=== PATIENT | female | born 1955 | race Caucasian/White ===

== ENCOUNTER 2018-04-12 10:29 | Outpatient (CLI) | payer MEDICAID, SELFPAY ==
[2018-04-12 12:42] LABS: HCT 38.8 % (36.0-46.0); HGB 12.8 g/dL (12.0-15.5); Mean Corpuscular Hemoglobin 29.9 pg (27.0-33.0); Mean Corpuscular Volume 90.7 fL (80-95); Mean Platelet Volume 10.4 fL (8.0-11.0); Platelet Count 228 x1000/uL (130-400); RBC 4.28 m/cumm (4.00-5.20); RBC Distribution Width 13.5 % (11.7-14.6); White Blood Cell Count 6.88 k/cumm (4.4-10.8)
[2018-04-12 13:02] LABS: ALT 21 U/L (12-78); AST 18 U/L (15-37); Albumin 3.6 g/dL (3.4-5.0); Alkaline Phosphatase 170 U/L (46-116); Anion Gap 8.6 mmol/L (3-11); BUN 14 mg/dL (7-18); Bilirubin, Total 0.4 mg/dL (0.2-1.0); CO2 26.4 mmol/L (21.0-32.0); CREATININE 0.81 mg/dL (0.55-1.02); Calcium 9.5 mg/dL (8.5-10.1); Chloride 105 mmol/L (98-107); Glucose 92 mg/dL (70-100); Potassium 4.1 mmol/L (3.5-5.1); Sodium 140 mmol/L (136-145); Total Protein 8.2 g/dL (6.4-8.2)
== END 2018-04-12 10:49 ==
PROVIDERS: PCP Registered Nurse; Visit Provider Obstetrics & Gynecology Gynecology
DX: N95.0 Postmenopausal bleeding (principal); Z01.818 Encounter for other preprocedural examination
CPT/HCPCS: 36415; 80053; 85027; 86850; 86900; 86901

== ENCOUNTER 2018-04-13 14:21 | Observation (INO) | payer MEDICAID, SELFPAY ==
--- NOTE | 2018-04-12 12:07 | DSU.FORM ---
04/12/18 Call made to Care Management Oralia Martinez to inform them of the possible need for post op services for Norma. Per Oralia Scrap Collector they will see Norma when she arrives on Med/surg after the procedure.
[2018-04-13] VITALS (18 sets, daily range): BP systolic 66–154; BP diastolic 23–78; PULSE 70–93; RESP 9–20; TEMP 35.6–36.7; O2SAT 90–96
[2018-04-13] MEDS: Lactated Ringers 1,000 ML 125 ML IV ×4 (07:27→16:50)
[2018-04-13] MEDS: Bupivacaine 0.25% Pres-Free 10 ML VIAL 20 ML (08:36)
--- NOTE | 2018-04-13 11:55 | UTER_PTH ---
PATIENT: Norma Yoon LOC: ICU U#:[id number] AGE/SX: 62/F ROOM: ICU.219 RE04/13/[address]: Lady Degroot : 1955 BED: A DIS: 04/14/2018 SPEC #: [id number] RECD: 04/13/18 13:13 STATUS: RUPA REQ #: [id number] KELLEY: 04/13/18 11:[address]: Lady Degroot DEPT: Surgical Specimen RECD BY: Shikha Otoole ENTERED: 04/13/18 13:17 SP TYPE: UTER OTHR DR: Ludy Ford Tissues: 1 - BLADDER BIOPSY 2 - OVARY NOT TUMOR W OR W/O TUBES 3 - UTERUS W OR W/O OVARIES(NOT TUMOR/PROLAPSE) Procedures: GROSS AND MICRO LEVEL 5 Comments: [id number] (PLEASE SILVA!)
[2018-04-13 14:40] LABS: HCT 32.9 % (36.0-46.0); HGB 10.8 g/dL (12.0-15.5)
[2018-04-13] MEDS: Pantoprazole 40 MG VIAL IVP (16:50)
[2018-04-13] MEDS: Normal Saline Flush 10 ML SYR IVP (16:50)
[2018-04-13] MEDS: LORazepam 0.5 MG TAB PO ×2 (18:53→23:29)
[2018-04-13] MEDS: Ketorolac 15 MG/ML VIAL IVP (22:02)
[2018-04-13] MEDS: Gemfibrozil 600 MG TAB PO (22:45)
[2018-04-13] MEDS: ARIPiprazole 5 MG TAB PO (22:46)
[2018-04-13] MEDS: oxyCODONE 5 MG TAB PO (23:29)
[2018-04-14] VITALS (10 sets, daily range): BP systolic 86–109; BP diastolic 44–80; PULSE 60–138; RESP 16–30; TEMP 36.3–36.5; O2SAT 90–99
[2018-04-14] MEDS: Lactated Ringers 1,000 ML 125 ML IV (00:12)
[2018-04-14] MEDS: Ketorolac 15 MG/ML VIAL IVP (04:25)
[2018-04-14] MEDS: Budesonide/Formoterol 160/4.5 6 GM 60 PUFF INH IH (07:11)
[2018-04-14 07:50] LABS: HCT 27.7 % (36.0-46.0); Mean Corp. HGB Concentration 32.5 g/dL (32.0-36.0); Mean Corpuscular Hemoglobin 30.3 pg (27.0-33.0); Mean Corpuscular Volume 93.3 fL (80-95); Platelet Count 206 x1000/uL (130-400); RBC 2.97 m/cumm (4.00-5.20); RBC Distribution Width 13.5 % (11.7-14.6)
[2018-04-14] MEDS: Pantoprazole 40 MG TABCR PO (08:05)
[2018-04-14] MEDS: Gemfibrozil 600 MG TAB PO (08:05)
[2018-04-14] MEDS: Escitalopram 20 MG TAB PO (08:05)
[2018-04-14] MEDS: Ibuprofen 800 MG TAB PO (08:05)
[2018-04-14] MEDS: Escitalopram 10 MG TAB PO (08:05)
[2018-04-14 08:28] LABS: ALT 33 U/L (12-78); AST 73 U/L (15-37); Albumin 2.7 g/dL (3.4-5.0); Alkaline Phosphatase 127 U/L (46-116); Anion Gap 10.8 mmol/L (3-11); BUN 20 mg/dL (7-18); Bilirubin, Total 0.2 mg/dL (0.2-1.0); CO2 25.2 mmol/L (21.0-32.0); CREATININE 1.07 mg/dL (0.55-1.02); Calcium 8.3 mg/dL (8.5-10.1); Chloride 105 mmol/L (98-107); Estimated GFR 52.13 (mL/min/1.73m2); Glucose 114 mg/dL (70-100); Potassium 3.7 mmol/L (3.5-5.1); Sodium 141 mmol/L (136-145)
[2018-04-14] MEDS: Acetaminophen 325 MG TAB 650 MG (09:52)
[2018-04-14] MEDS: Albuterol 2.5 MG/3 ML INH SOLN VIAL UPD (13:30)
--- NOTE | 2018-04-14 13:46 | ROE_ITS ---
REPORT OF OPERATIVE PROCEDURE DATE OF PROCEDURE April 13, 2018 PREOPERATIVE DIAGNOSIS Postmenopausal bleeding. POSTOPERATIVE DIAGNOSES 1. Postmenopausal bleeding. 2. Peritoneal mass. SURGEON Lady Degroot M.D. LINKER UP Lynn Nino M.D. PROCEDURES Laparoscopic-assisted vaginal hysterectomy with bilateral salpingo-oophorectomy and dissection of a peritoneal mass. Bladder cystoscopy. ANESTHESIA General endotracheal, Damian Hetzelt, C.R.N.A. FLUIDS 1000 cc of crystalloid. ESTIMATED BLOOD LOSS 1000 cc URINE OUTPUT 150 cc of clear urine in the Abad catheter at the completion of the procedure. SPECIMENS Peritoneal biopsy of peritoneal mass, uterus, cervix, fallopian tube and ovaries to pathology. DRAINS Abad cath to gravity drainage. COMPLICATIONS None. DISPOSITION Awake, extubated, and transported to the Recovery Room area in stable condition. INDICATIONS A 62-year-old 2, para 2 female, with a history of postmenopausal bleeding with a previous benign endometrial biopsy, who declined all hormonal treatment for her postmenopausal bleeding. The patient was counseled regarding alternatives to hysterectomy, but declined all including long-acting reversal contraception. FINDINGS AT THE TIME OF SURGERY The uterus is small. The patient had previously had a tubal ligation. The ovaries appeared normal. On the peritoneum and the anterior cul-de-sac around the bladder flap was a 2x1 cm firm, small patch of firm, blue grover excrescence.. There was a smaller ~ 1cm patch of the same excrescences on the serosal surface of the small intestine. No evidence of peritoneal studding anywhere else. No evidence of inflammatory changes within the pelvis or abdomen. The uterus and adnexa appeared normal. DESCRIPTION OF PROCEDURE The patient was taken to the Operating Room. She was placed in the dorsal supine position, and general anesthesia was administered without difficulty. She was then placed in the dorsal lithotomy position in [facility], prepped and draped in the usual sterile fashion. A Abad was inserted to gravity drainage and a bi-valved speculum was placed in the vagina. The anterior lip of the cervix was grasped with a single tooth tenaculum and a VCare uterine manipulator was inserted into the uterus. The balloon inflated and the V-cup fitted over the uterine and cervix. Attention was turned to the patient's abdomen, where a transverse skin incision was made below the umbilicus approximately 3 cm in length using a scalpel after infiltration with 0.25% Marcaine. The subcutaneous tissue was bluntly dissected until the rectus fascia was visualized. The rectus fascia was tented up with Catina clamps, incised with curved Au scissors, and the peritoneum was then entered bluntly. The fascia and peritoneum were then held with interrupted suture of 0-Vicryl, which was then attached to the Leon trocar and sleeve, that was introduced into the incision. Intraabdominal placement was confirmed by use of the laparoscope and decrease in intraabdominal pressure with insufflation with carbon dioxide gas. Once pneumoperitoneum was achieved, the patient was placed in Trendelenburg, and the bowels swept away, and the pelvis carefully inspected with the above-noted findings. An attempt was made to contact the on-call Pathologist who was out of the area, and an attempt was also made to contact the on-call Urologist, who was out of the area regarding the excrescences on the peritoneal surface. The decision was made to proceed with the procedure. The right fallopian tube was grasped, followed out to its fimbriated end, clamped, cauterized and cut with a LigaSure device. The same procedure was carried out on the right round ligament and right broad ligament to the level of the uterine artery. The uterine artery was clamped, cauterized and incised. Attention was turned to the patient's left side, where the infundibulopelvic ligament was located, clamped and cauterized in several continuous locations, and then incised. This allowed access to the round ligament, which was divided and the left broad ligament, which was then carefully dissected to the level of the uterine artery. The peritoneal reflection of the bladder was then incised with care taken to retract the bladder with the excrescences away from the uterine specimen. We were able to mobilize the bladder flap with a combination of LigaSure device and careful dissection. The remaining serosal surfaces were then incised on the peritoneum and the lower broad ligament allowing access to the uterine arteries and any collateral circulation. Any collateral circulation was then clamped, cauterized and tied. A monopolar device was then used to incise the lower uterine segment at the level of the cervix and the vaginal interface using the V-Care cup as a guide. Once the uterus was mobilized, the attention was turned to the patient's right adnexa, where the infundibulopelvic ligament was clamped, cut and cauterized freeing both the right ovary and the right fallopian tube remnant. Attention was then turned to the peritoneal surface of the bladder reflection and where the peritoneum with its attached excrescences was undermined, retracted away from the bladder and excised in its entirety. It was delivered and passed off of the operative field. The sites of bleeding along the collateral vessels were then clamped and cauterized with attention to the left pelvic side wall, where the peritoneum was carefully dissected to assure that were away from the ureter and the peritoneal attachments. Peritoneal bleeding was controlled by use of the LigaSure device and the monopolar cautery. The uterus and adnexa were then delivered through the vaginal incision and passed off of the operative field. The vaginal cuff was then closed through the vagina with interrupted sutures of #0-Vicryl. The vaginal cuff was inspected using the laparoscope after pneumoperitoneum had been re-established and the vaginal cuff was noted to be hemostatic. There continued to be bleeding from the left lateral peritoneal surfaces, which was then controlled with LigaSure device and Bovie electrocautery. Simultaneous to the inspection of the bleeding sites, the Abad catheter was removed. A 70-degree hysteroscope was inserted with normal saline as distention medium and the bladder carefully inspected with no evidence of loss of bladder integrity. Both ureteral jets were noted and were vigorous. Final inspection of all intraabdominal pedicles was performed and noted to be hemostatic. The instruments were removed under direct visualization. The rectus fascia of the periumbilical and the left lateral upper margin incisions were reapproximated with interrupted sutures of #0-Vicryl. The skin of both 11-mm port sites were reapproximated with subcuticular suture of #3-0 Monocryl and sealed with skin glue. Then all four ports sites were sealed with skin glue. The patient was awakened from anesthesia, extubated and transported to the Recovery Area in stable condition. All sponge, lap and needle counts were correct x2. She received one dose of antibiotics prior to her skin incision and a second dose of antibiotics after 4 hours had passed of surgical time.
--- NOTE | 2018-04-14 13:54 | PDOC.CMIN ---
- If Service Date Differs Date of service: 04/14/18 Time of Service: 13:54 Care Management Initial Assess REASON FOR HOSPITALIZATION:: Hysterectomy PAST MEDICAL HISTORY/PAST SURGICAL HISTORY:: Cognitive impairment, OCD, hearing impairment, sleep apnea, GERD. PREVIOUS FUNCTIONAL STATUS/SOCIAL/FAMILY SUPPORTS:: Norma, is a 62 year old female that lives in [place], [place]. She receives DS services through [facility] her CM is Myrtle contact number is [phone] ext [phone]. She is disabled. Rosibel is social she [place] her friends [place] the local market [place]. DS provides medication and supervision. Rosibel's sister Carolin is a person of support for her. CURRENT FUNCTIONAL STATUS:: Rosibel is sitting up in the chair she is talkative and loud. She has a hearning impairment. Her sister is present during CM assessment. Rosibel states she is having some abdominal discomfort and when she coughs it is painful. She has a history of bronchitis and chronic cough. She smokes cigars and cigarettes. Rosibel has trouble understanding discharge instructions and activity limitations. Norma request that CM contact her Probation Counselor to assist with discharge planning. ADVANCE DIRECTIVES:: None on file Has patient been provided with information about the portal?: No Did the patient sign up for the portal?: No CODE STATUS:: Full Code INSURANCE COVERAGE / FINANCIAL ISSUES:: Medicaid CURRENT HOME/COMMUNITY SERVICES/EQUIPMENT:: [facility], DS services, nebulizer through [facility], RCT services PRIMARY CARE PHYSICIAN:: Ludy Ford APRN POTENTIAL DISCHARGE NEEDS:: Discharge education, limitations and follow up plan of care PATIENT/FAMILY EDUCATION NEEDS:: Discharge education, limitations and follow up plan of care ANTICIPATED BARRIERS TO DISCHARGE:: Rosibel will be picked up by her CM. Concerns that she will need to stay home over the next week to recovery from surgery. [facility] is going to provide support in the home on Wednesday and check ins over the weekend. Sister will stay with her tonight upon returning home. TRANSPORTATION:: Via private car with CM at time of discharge. PLAN:: Rosibel will be discharged home today per MD. She will follow up as directed. CM contacted Probation Counselor in [place] at [facility] and reviewed the discharge plan. Rosibel wants to be discharged today and return home.
--- NOTE | 2018-04-14 14:42 | INITIAL_ITS ---
- If Service Date Differs Date of service: 04/14/18 Time of Service: 13:54 Care Management Initial Assess REASON FOR HOSPITALIZATION:: Hysterectomy PAST MEDICAL HISTORY/PAST SURGICAL HISTORY:: Cognitive impairment, OCD, hearing impairment, sleep apnea, GERD. PREVIOUS FUNCTIONAL STATUS/SOCIAL/FAMILY SUPPORTS:: Norma, is a 62 year old female that lives in [place], [place]. She receives DS services through [facility] her CM is Myrtle contact number is [phone] ext [phone]. She is disabled. Rosibel is social she meets her friends [place] at the local market [place]. DS provides medication and supervision. Rosibel's sister Carolin is a person of support for her. CURRENT FUNCTIONAL STATUS:: Rosibel is sitting up in the chair she is talkative and loud. She has a hearning impairment. Her sister is present during CM assessment. Rosibel states she is having some abdominal discomfort and when she coughs it is painful. She has a history of bronchitis and chronic cough. She smokes cigars and cigarettes. Rosibel has trouble understanding discharge instructions and activity limitations. Norma request that CM contact her Cotton Ginner to assist with discharge planning. ADVANCE DIRECTIVES:: None on file Has patient been provided with information about the portal?: No Did the patient sign up for the portal?: No CODE STATUS:: Full Code INSURANCE COVERAGE / FINANCIAL ISSUES:: Medicaid CURRENT HOME/COMMUNITY SERVICES/EQUIPMENT:: [facility], DS services, nebulizer through [facility], RCT services PRIMARY CARE PHYSICIAN:: Ludy Ford APRN POTENTIAL DISCHARGE NEEDS:: Discharge education, limitations and follow up plan of care PATIENT/FAMILY EDUCATION NEEDS:: Discharge education, limitations and follow up plan of care ANTICIPATED BARRIERS TO DISCHARGE:: Rosibel will be picked up by her CM. Concerns that she will need to stay home over the next week to recovery from surgery. [facility] is going to provide support in the home on Wednesday and check ins over the weekend. Sister will stay with her tonight upon returning home. TRANSPORTATION:: Via private car with CM at time of discharge. PLAN:: Rosibel will be discharged home today per MD. She will follow up as directed. CM contacted Cotton Ginner in [place] at [facility] and reviewed the discharge plan. Rosibel wants to be discharged today and return home.
--- NOTE | 2018-04-14 14:42 | PDOC.CMDIS ---
- If Service Date Differs Date of service: 04/14/18 Time of Service: 14:42 LACE Index Scoring Tool - Questions: Length of Stay (in days): 2 Acuity (Admit via E.D.?): No Comorbidities: Diabetes w/o Complication E.D. Visits: 1 - Answers: Total Score: 4 Risk of Readmission: Low Risk Care Management Discharge Reason for Hospitalization: Hysterectomy Discharge Plan: Rosibel will be discharged home today per MD. She will follow up as directed. CM contacted Mattress Filler in [place] at [facility] and reviewed the discharge plan. Rosibel wants to be discharged today and return home. wine manager has arranged for a support person to be with her on Wednesday. Her sister will spend the night with her tonight. Her CM will pick her up at the time of discharge. Patient/Family Education Needs: Discharge education, limitations and follow up plan of care. - MH Services (Omit if N/A) Current MH Services: [facility]
--- NOTE | 2018-04-14 14:43 | PHARADMIT ---
Admission Pharmacy Clinical Review postmenopausal bleeding Code Status Full Code Current Weight Wgt- 83.4 kg Renally Cleared and Narrow Therapeutic Index Meds CrCl~ 39.6 mL/min Meds-OK QTc Value / Action Taken na BP Control, Fever BP- 92/54 Tmax- 36.6C Electrolytes reviewed Na- 1.07 K+3.7 DVT Prophylaxis NONE Opiate Usage / Scheduled Bowel Regimen Ordered Yes No Plt/SCr for Heparin / Enoxaparin Plts- 206 SCr-1.07 INR for Warfarin na H/H stable, WBC/Bands H&H- 9.0/27.7 WBC-9.40 Antibiotic appropriateness Cefazolin in ER Cultures and Sensitivities none Surgical ABX d/c within 24 hr na DM control / Insulin Dosing BG-114 Heart Failure (Check EF%) (REGINO's, B-Block, Diuretics) none IV to PO Switch No Home Meds Reviewed Yes Home Meds Not Ordered Provera, Calcium/D, M-vites, Shavon, Comments
--- NOTE | 2018-04-14 14:45 | CMDISCH_ITS ---
- If Service Date Differs Date of service: 04/14/18 Time of Service: 14:42 LACE Index Scoring Tool - Questions: Length of Stay (in days): 2 Acuity (Admit via E.D.?): No Comorbidities: Diabetes w/o Complication E.D. Visits: 1 - Answers: Total Score: 4 Risk of Readmission: Low Risk Care Management Discharge Reason for Hospitalization: Hysterectomy Discharge Plan: Rosibel will be discharged home today per MD. She will follow up as directed. CM contacted Electronics Engineer in [place] at [facility] and reviewed the discharge plan. Rosibel wants to be discharged today and return home. electrical engineering manager has arranged for a support person to be with her on Wednesday. Her sister will spend the night with her tonight. Her CM will pick her up at the time of discharge. Patient/Family Education Needs: Discharge education, limitations and follow up plan of care. - MH Services (Omit if N/A) Current MH Services: [facility]
--- NOTE | 2018-04-15 07:08 | DSE_ITS ---
Discharge Plan Disposition Patient Disposition: HOME Condition: Fair Discharge Details Reason For Visit: POSTMENOPAUSAL BLEEDING Admit Date/Time: 04/13/18 14:21 Admit Provider: Lady Degroot Attending Provider: Lady Degroot Primary Care Provider: Ludy Ford Hospital Course Hospital Course: Patient was admitted the morning of surgery underwent a laparoscopic assisted vaginal hysterectomy along with a bilateral soft Pingel hysterectomy. There was findings of a nodular mass approximately 1 x 2 cm on the peritoneal surface of the bladder. That was dissected off of the bladder and sent as a separate specimen. The postop course was uncomplicated pain was controlled with IV morphine which patient used 2 doses of in a 24-hour postop. She was tolerating her liquids ambulating and voiding successfully without the Abad at the time of discharge. Her final hematocrit 27% on discharge vital signs are stable. Incisions were clean dry and intact with ecchymosis at the incision sites. She will be given a prescription for oxycodone 5/325 1 tablet twice daily as needed and Motrin 800 mg twice daily as needed. not to ambulate outside the house until she sees me in for postop check next week. Her guardian will arrange for distribution of medications including her home meds. They are caretakers who will visit the patient on a daily basis . Home Meds and New Rx's Prescriptions: Continued multivitamin [Daily Multi-Vitamin] 1 EACH tablet 1 ea PO DAILY RF: 0 acetaminophen 500 MG tablet 1,000 mg PO DAILY Qty: 2 RF: 0 gemfibrozil 600 MG tablet 600 mg PO BID RF: 0 albuterol sulfate [ProAir HFA] 8.5 GM HFA aerosol inhaler 1 puff Inhalation Q4H PRN RF: 0 escitalopram oxalate [Lexapro] 10 MG tablet 10 mg PO DAILY RF: 0 escitalopram oxalate [Lexapro] 20 MG tablet 20 mg PO DAILY RF: 0 aripiprazole [Abilify] 5 MG tablet 5 mg PO DAILY RF: 0 Spiriva with HandiHaler 18 MCG capsule, w/inhalation device 18 mcg Inhalation DAILY RF: 0 Symbicort 10.2 GM HFA aerosol inhaler 2 puff Inhalation DAILY RF: 0 Calcium 600 + D(3) 600 mg calcium- 200 unit Capsule 1 tab PO DAILY RF: 0 nicotine (polacrilex) [Nicorette] 4 mg Gum 4 mg BUCCAL Q2H RF: 0 pantoprazole 40 mg Tablet,Delayed Release (Dr/Ec) 40 mg PO DAILY RF: 0 Discontinued ferrous sulfate 325 MG tablet 325 mg PO DAILY RF: 0 No Action lorazepam [Ativan] 0.5 mg tablet 0.5 mg PO HS MAY REPEAT X1 PRN (Reason: sleep) Qty: 2 RF: 0 Discharge Instructions Additional Instructions: Postoperative Instructions Outpatient Gynecology PLEASE LIMIT YOUR ACTIVITY * Limit stair climbing for your first week at home. * You may increase your activity and stair climbing after that, gradually, as tolerated. YOU MAY * Shower and wash your hair at any time. * If you have an abdominal incision, you may also wash your incision with warm water and soap, dry well. You may also use peroxide to clean your incision. AFTER YOUR FIRST WEEK AT HOME * You may do light housekeeping, leave the house, and ride in a car. * No trips to [facility] until Dr. Degroot says that you may go. * To help with your recovery, you should NOT SMOKE AVOID * Vigorous exercise or heavy lifting for (6) six weeks after your surgery. * Please abstain from intercourse, douching, and using tampons for (4) four weeks or until your physician indicates that this is acceptable. YOU MAY HAVE * Some vaginal bleeding and/or discharge for (2) two to (3) three weeks after your surgery. * Use pads only. * Please contact the office if you have any sudden, heavy vaginal bleeding. TO AVOID CONSTIPATION * You may use over the counter products, for example; Metamucil, Fibercon, Colace, or Milk of Magnesia. * Also, eat a well balanced, high fiber diet and drink plenty of liquids. * You may also use a girdle or abdominal support, if you wish for comfort, but it is not required. CALL THE OFFICE * If you have any signs of infection, such as; a temperature greater than 100.4F, general ill feelings, redness or discharge at the site of the incision, or foul smelling vaginal discharge. * If you experience any new symptoms, such as; nausea, vomiting, abdominal swelling, or severe pain. * As soon as you are able to, schedule a follow-up appointment for (4) four to (6) six weeks from surgery. * Please make the appointments with the physician that performed your surgery. MEDICATIONS * You may use ibuprofen 800 mg every 8 hours for pain- Advil, Motrin IB, and Ibuprofen that you buy without a prescription are the same medicine as prescribed Motrin or Ibuprofen. The kind you buy without prescription are 200mg so you may take 4 of these at a time if you did not receive a prescription for Ibuprofen. * You have a prescription for Percocet 5/325mg take one tablet twice daily for pain for the 1st 3 days. Then use the Ibuprofen as directed. Please call the office with any questions or concerns at [phone]. Dr. Degroot wants to see you in the office next week. Activity:: No leaving the house until you see Dr. Degroot next week. Equipment/Supplies:: No Equipment Needed Diet:: As Tolerated Discharge Orders Discharge Orders: Discharge Order (Routine); Ordered 04/14/18 Ordered By: Lady Degroot Discharge Data Discharge Date/Time-TO BE ENTERED AT DEPARTURE: 04/14/18 15:20 Exam Narrative Exam Narrative: Unremarkable post op course. Patient was admitted to the ICU for the purpose of close observation secondary to behavioral issues. She was compliant and cooperative through the duration of the hospital visit. Pain was controlled with nonsteroidal anti-inflammatories. She declines narcotics. She was discharged to home with strict instructions to limit her activities. Const General: no acute distress Nutritional Appearance: average body habitus Orientation: alert, awake and oriented x3 Resp Effort & Inspection: normal respiratory effort Auscultation: clear to auscultation bilaterally GI Inspection: normal to inspection (Trocar sites healing appropriately) Palpation: soft General: deferred Back/Spine/Pelvis Back: no CVA tenderness Skin General skin exam: no rashes or lesions noted Extrem General: normal to inspection, full ROM and normal capillary refill Psych Appearance: disheveled Mental Status: other (her status at baseline.) Speech and Movement: restless (Patient expressing strong desire to be discharged home) Mood: other (her status at baseline.) Affect: anxious affect Thought Process: impoverished Thought Content: compulsions (Is aware that she will not be walking long distances) Insight: fair Judgment: fair
== END 2018-04-14 15:20 | disposition home or self-care (01) ==
LOC: PDS 14:37 → ICU 04-14 05:36
PROVIDERS: Nurse Anesthetist, Certified Registered; Admitting Provider Obstetrics & Gynecology Gynecology; PCP Registered Nurse; Visit Provider Obstetrics & Gynecology Gynecology
PROC: 0UT9FZZ Resection of Uterus, Via Natural or Artificial Opening With Percutaneous Endoscopic Assistance (ICD-10-PCS; CPT 58552; principal; 2018-04-13 07:30)
PROC: 0TJB8ZZ Inspection of Bladder, Via Natural or Artificial Opening Endoscopic (ICD-10-PCS; CPT 52000; 2018-04-13 07:30)
DX: N95.0 Postmenopausal bleeding (principal); R19.09 Other intra-abdominal and pelvic swelling, mass and lump; N83.291 Other ovarian cyst, right side; Z98.51 Tubal ligation status; N73.6 Female pelvic peritoneal adhesions (postinfective)
CPT/HCPCS: 58552; 36415; 80053; 85027; 88305; 94640; 85014; 85018; 88307; G0378; J0131; J0690; J1100; J1200; J1885; J2270; J2405; J3010; J7613

== ENCOUNTER 2018-09-01 12:38 | Outpatient (CLI) | payer MEDICAID, SELFPAY ==
[2018-09-01 13:19] LABS: HCT 36.9 % (36.0-46.0); HGB 12.1 g/dL (12.0-15.5); Mean Corp. HGB Concentration 32.8 g/dL (32.0-36.0); Mean Corpuscular Hemoglobin 28.5 pg (27.0-33.0); Platelet Count 287 x1000/uL (130-400); RBC 4.24 m/cumm (4.00-5.20); RBC Distribution Width 14.4 % (11.7-14.6); White Blood Cell Count 6.95 k/cumm (4.4-10.8)
[2018-09-01 13:49] LABS: Anion Gap 11.7 mmol/L (3-11); BUN 19 mg/dL (7-18); CO2 24.3 mmol/L (21.0-32.0); CREATININE 0.82 mg/dL (0.55-1.02); Calcium 9.3 mg/dL (8.5-10.1); Chloride 106 mmol/L (98-107); Glucose 92 mg/dL (70-100); Sodium 142 mmol/L (136-145)
== END 2018-09-01 12:58 ==
PROVIDERS: PCP Registered Nurse; Visit Provider Obstetrics & Gynecology Gynecology
DX: Z01.818 Encounter for other preprocedural examination (principal); R69 Illness, unspecified
CPT/HCPCS: 36415; 80048; 85027

== ENCOUNTER 2018-09-07 08:53 | Day surgery (SDC) | payer MEDICAID, SELFPAY ==
[2018-09-07 09:05] VITALS: BP 116/65; PULSE 72; RESP 16; TEMP 36.6; O2SAT 94
[2018-09-07] MEDS: Lactated Ringers 1,000 ML 125 ML IV (09:50)
[2018-09-07] MEDS: Silver Nitrate Stick 1 EACH (10:59)
--- NOTE | 2018-09-07 11:27 | W.PM.DSUDISC ---
Discharge Plan Disposition Patient Disposition: HOME Condition: Good Discharge Details Reason For Visit: Self-reported bleeding from vagina after LAVH/BSO Attending Provider: Lady Degroot Primary Care Provider: Ludy Ford Home Meds and New Rx's Prescriptions: No Action multivitamin [Daily Multi-Vitamin] 1 EACH tablet 1 ea PO DAILY RF: 0 acetaminophen 500 MG tablet 1,000 mg PO DAILY Qty: 2 RF: 0 gemfibrozil 600 MG tablet 600 mg PO BID RF: 0 albuterol sulfate [ProAir HFA] 8.5 GM HFA aerosol inhaler 1 puff Inhalation Q4H PRN RF: 0 escitalopram oxalate [Lexapro] 10 MG tablet 10 mg PO DAILY RF: 0 escitalopram oxalate [Lexapro] 20 MG tablet 20 mg PO DAILY RF: 0 aripiprazole [Abilify] 5 MG tablet 5 mg PO DAILY RF: 0 Spiriva with HandiHaler 18 MCG capsule, w/inhalation device 18 mcg Inhalation DAILY RF: 0 Symbicort 10.2 GM HFA aerosol inhaler 2 puff Inhalation DAILY RF: 0 lorazepam [Ativan] 0.5 mg tablet 0.5 mg PO HS MAY REPEAT X1 PRN (Reason: sleep) Qty: 2 RF: 0 Calcium 600 + D(3) 600 mg calcium- 200 unit Capsule 1 tab PO DAILY RF: 0 nicotine (polacrilex) [Nicorette] 4 mg Gum 4 mg BUCCAL Q2H RF: 0 pantoprazole 40 mg Tablet,Delayed Release (Dr/Ec) 40 mg PO DAILY RF: 0 Discharge Instructions Additional Instructions: You may resume normal activities. To not place anything in the vagina or the rectum. Take and save all of your pads so that Dr. Degroot can look at them when you return to the office next week. Dr. Degroot will call your doctor and recommend a colonoscopy. Stand Alone Forms: [facility] Post Gynecology Surgery, Kay Chavez ([facility]) Activity:: Activity as Tolerated Diet:: As Tolerated Discharge Orders Discharge Orders: Discharge Order (Routine); Ordered 09/07/18 Ordered By: Lady Degroot Discharge Data Discharge Date/Time-TO BE ENTERED AT DEPARTURE: 09/07/18 12:15 Discharge Comment: DC'D HOME WITH CAREGIVER AND SISTER, STABLE. DS: Diagnosis Discharge Diagnosis (1) Bleeding: Status: Acute
[2018-09-07 11:56] VITALS: BP 96/60; PULSE 69; RESP 18; TEMP 36.6; O2SAT 97
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
--- NOTE | 2018-09-11 18:58 | W.PM.OP ---
Date of service: 09/11/18 Time of Service: 18:58 Operative Note DATE OF PROCEDURE: 09/07/18 PRE-OP DIAGNOSIS: Self-reported vaginal bleeding POST-OP DIAGNOSIS: same PROCEDURE: Exam under anesthesia SURGEON: Lady Degroot ASSISTING SURGEON: None None ANESTHESIA: MAC ESTIMATED BLOOD LOSS: 0 PATHOLOGY: none sent COMPLICATIONS: None Patient was transported to: PACU Patient's condition: stable Indications: 63yo female who underwent a LAVH/BSO on 04/12/2018 for abnormal uterine bleeding reported excessive vaginal bleeding for several weeks. She denied vaginal instrumentation any GI source of the bleeding. Patient did not tolerate an exam in the office so an exam under anesthesia was recommended. Findings: Atrophic intact vaginal canales the vaginal cuff is well approximated well supported without masses induration or contact bleeding. There was a 1 mm area of granulation tissue that was easily removed at the vaginal cuff. However no bleeding was encountered. Rectal exam showed a nonbleeding internal hemorrhoids which prolapse with Valsalva Hemoccult testing was negative the rectum was smooth without lesions. Procedure Description: Patient was taken the operating room where she was placed in the dorsal supine position and monitored anesthesia care was administered without difficulty. She was then placed in the dorsal lithotomy position in yellowfin stirrups and SCDs were in place. Perineum was prepped and draped in usual sterile fashion. A narrow Laz bivalve speculum was placed into the vagina and the vagina was carefully inspected with the above-noted findings. The area of granulation tissue was easily removed with a swab of the site with a Q-tip. No contact bleeding was encountered. No malodorous vaginal discharge. Speculum was removed the urethra was normal in appearance as was the anus. Rectal exam was performed with the above-noted findings with the patient experiencing Valsalva of the hemorrhoid was visible but was not actively bleeding. The exam was completed the patient was placed in the dorsal supine position and awakened from anesthesia and transported to recovery area in stable condition no needles were used during the procedure. The sponge and lap counts were correct.
== END 2018-09-07 12:15 | disposition home or self-care (01) ==
PROVIDERS: PCP Registered Nurse; Visit Provider Obstetrics & Gynecology Gynecology
PROC: (CPT 57410; principal; 2018-09-07 10:30)
DX: N93.9 Abnormal uterine and vaginal bleeding, unspecified (principal); Z90.710 Acquired absence of both cervix and uterus; Z90.79 Acquired absence of other genital organ(s); Z90.722 Acquired absence of ovaries, bilateral; G47.33 Obstructive sleep apnea (adult) (pediatric); K21.9 Gastro-esophageal reflux disease without esophagitis; F17.210 Nicotine dependence, cigarettes, uncomplicated
CPT/HCPCS: 57410; J2250

== ENCOUNTER → 2023-05-12 10:08 | Outpatient (BNVA) | payer MEDICARE, MEDICAID, SELFPAY | PROVIDERS: PCP Registered Nurse; Referring Provider Registered Nurse; Visit Provider Physician Assistant Surgical | DX: J44.1 Chronic obstructive pulmonary disease with (acute) exacerbation (principal); Z79.51 Long term (current) use of inhaled steroids; Z79.899 Other long term (current) drug therapy; F17.210 Nicotine dependence, cigarettes, uncomplicated; G47.30 Sleep apnea, unspecified; K21.9 Gastro-esophageal reflux disease without esophagitis | CPT/HCPCS: 94640; 99204; J7620 ==

== ENCOUNTER → 2023-05-27 13:01 | Outpatient (BNVA) | payer MEDICARE, MEDICAID, SELFPAY | PROVIDERS: PCP Registered Nurse; Referring Provider Registered Nurse; Visit Provider Physician Assistant Surgical | DX: J44.1 Chronic obstructive pulmonary disease with (acute) exacerbation (principal); F17.210 Nicotine dependence, cigarettes, uncomplicated; K21.9 Gastro-esophageal reflux disease without esophagitis; G47.30 Sleep apnea, unspecified | CPT/HCPCS: 99443 ==

== ENCOUNTER → 2023-11-11 11:17 | Outpatient (BNVA) | payer MEDICARE, MEDICAID, SELFPAY | PROVIDERS: PCP Registered Nurse; Referring Provider Registered Nurse; Visit Provider Student in an Organized Health Care Education/Training Program | DX: J98.4 Other disorders of lung (principal); F17.200 Nicotine dependence, unspecified, uncomplicated; G47.30 Sleep apnea, unspecified; K21.9 Gastro-esophageal reflux disease without esophagitis | CPT/HCPCS: 99214 ==

== ENCOUNTER 2023-12-10 01:13 | Outpatient (CLI) | payer MEDICARE, MEDICAID, SELFPAY ==
[2023-12-10] MEDS: Levalbuterol HFA 15 GM INH 4 PUFF IH (14:36)
[2023-12-10] MEDS: Inhaler, Assist Device 1 EACH MC (14:36)
--- NOTE | 2023-12-13 10:15 | W.PFT ---
Date of service: 12/10/23 Time of Service: 13:04 Pulmonary Function Test Result Indications: Restrictive lung disease Interpretation Spirometry: There is no airflow limitation. Significant bronchodilator response. There is restrictive spirometry. Lung Volumes: Normal lung volumes Diffusion Capacity: Normal diffusion Airway Pressure: Normal airways resistance Impression There is no airflow limitation. There is pseudo-restriction from obesity with a significant bronchodilator response. This is consistent with obesity related lung disease, possibly with asthma. Clinical Correlation therefore is recommended.
== END 2023-12-10 01:14 | disposition home or self-care (01) ==
LOC: RT 01:13
PROVIDERS: PCP Registered Nurse; Visit Provider Student in an Organized Health Care Education/Training Program
DX: J98.4 Other disorders of lung (principal)
CPT/HCPCS: 94060; 94726; 94729

== ENCOUNTER → 2024-02-29 10:58 | Outpatient (BNVA) | payer MEDICARE, MEDICAID, SELFPAY | PROVIDERS: PCP Registered Nurse; Referring Provider Registered Nurse; Visit Provider Internal Medicine Critical Care Medicine | DX: R06.09 Other forms of dyspnea (principal); R94.2 Abnormal results of pulmonary function studies; F17.210 Nicotine dependence, cigarettes, uncomplicated; G47.33 Obstructive sleep apnea (adult) (pediatric); K21.9 Gastro-esophageal reflux disease without esophagitis | CPT/HCPCS: 99214 ==

== ENCOUNTER → 2024-05-03 15:03 | Outpatient (BNVA) | payer MEDICARE, MEDICAID, SELFPAY | PROVIDERS: PCP Registered Nurse; Referring Provider Registered Nurse; Visit Provider Physician Assistant Surgical | DX: R06.09 Other forms of dyspnea (principal); R94.2 Abnormal results of pulmonary function studies; F17.210 Nicotine dependence, cigarettes, uncomplicated; G47.33 Obstructive sleep apnea (adult) (pediatric); K21.9 Gastro-esophageal reflux disease without esophagitis | CPT/HCPCS: 99214 ==

== ENCOUNTER → 2024-11-01 10:08 | Outpatient (BNVA) | payer MEDICARE, MEDICAID, SELFPAY | PROVIDERS: PCP Registered Nurse; Referring Provider Registered Nurse; Visit Provider Physician Assistant Surgical | DX: R06.09 Other forms of dyspnea (principal); R94.2 Abnormal results of pulmonary function studies; F17.210 Nicotine dependence, cigarettes, uncomplicated; G47.33 Obstructive sleep apnea (adult) (pediatric); K21.9 Gastro-esophageal reflux disease without esophagitis | CPT/HCPCS: 99214 ==

== ENCOUNTER → 2025-05-07 12:09 | Outpatient (BNVA) | payer MEDICARE, MEDICAID, SELFPAY | PROVIDERS: PCP Registered Nurse; Referring Provider Registered Nurse; Visit Provider Physician Assistant Surgical | DX: R06.09 Other forms of dyspnea (principal); R94.2 Abnormal results of pulmonary function studies; G47.33 Obstructive sleep apnea (adult) (pediatric); K21.9 Gastro-esophageal reflux disease without esophagitis; Z87.891 Personal history of nicotine dependence | CPT/HCPCS: 99214 ==